=== PATIENT | female | born 1960 | race African-American/Black ===

== ENCOUNTER 2017-10-31 12:01 | Emergency (ER) | payer MEDICAID ==
[2017-10-31] MEDS ORDERED: TETRACAINE HCL 0.5% OPH SOLN 2 ML OS ONE ×2 (12:33→13:00)
--- NOTE | 2017-10-31 12:39 | ER Document Report ---
ED ENT - General Chief Complaint: Ear Pain Stated Complaint: EAR PAIN, EYE IRRITATION Time Seen by Provider: 10/31/17 12:18 Mode of Arrival: Ambulatory Information source: Patient Notes: 57-year-old female presents to ED for complaint of left ear pain since Tuesday. She states she came on a flight from [place] to [place] on Tuesday by Tuesday she had ear throat and nose pain and was starting to have some difficulty in swallowing. She states that yesterday she started having eye pain in her right eye. The eye is slightly red she states she is having drainage from the eye. Patient is alert and oriented respirations regular and unlabored speaking in full sentences. TRAVEL OUTSIDE OF THE [place] IN LAST 30 DAYS: No - HPI Patient complains to provider of: Ear problem - Left, Nose problem, Throat problem, Other Onset: Other - Findings Onset/Duration: Gradual, Worse Quality of pain: Achy, Dull, Other - Throbbing Severity: Moderate Pain Level: 4 Location of pain: Ears, Nose, Throat, Other - I Associated symptoms: Ear pain, Other - Red irritated painful eye with drainage Similar symptoms previously: Yes Recently seen / treated by doctor: No - Related Data Allergies/Adverse Reactions: No Known Allergies Allergy (Unverified 10/31/17 12:02) Past Medical History - General Information source: Patient - Social History Smoking Status: Current Every Day Smoker Cigarette use (# per day): Yes - 5-6 Chew tobacco use (# tins/day): No Smoking Education Provided: Yes - 4 minutes Frequency of alcohol use: None Drug Abuse: None Lives with: Alone Family History: Reviewed & Not Pertinent Patient has suicidal ideation: No Patient has homicidal ideation: No - Past Medical History Cardiac Medical History: Reports: Hx Hypercholesterolemia, Hx Hypertension Pulmonary Medical History: Reports: Hx Asthma EENT Medical History: Reports: None Neurological Medical History: Reports: None Endocrine Medical History: Reports: None Renal/ Medical History: Reports: None Malignancy Medical History: Reports: None GI Medical History: Reports: None Musculoskeletal Medical History: Reports Hx Musculoskeletal Deformity, Reports Hx Musculoskeletal Trauma Skin Medical History: Reports None Psychiatric Medical History: Reports: None Traumatic Medical History: Reports: None Infectious Medical History: Reports: None Past Surgical History: Reports: Hx Orthopedic Surgery - rotator cuff - Immunizations Immunizations up to date: Yes Hx Diphtheria, Pertussis, Tetanus Vaccination: Yes Review of Systems - Review of Systems Constitutional: No symptoms reported EENT: Eye pain, Ear pain, Nose pain, Nose congestion, Nose discharge, Sinus pressure, Throat pain Cardiovascular: No symptoms reported Respiratory: No symptoms reported Gastrointestinal: No symptoms reported Genitourinary: No symptoms reported Female Genitourinary: No symptoms reported Musculoskeletal: No symptoms reported Skin: No symptoms reported Hematologic/Lymphatic: No symptoms reported Neurological/Psychological: No symptoms reported -: Yes All other systems reviewed and negative Physical Exam - Vital signs Vitals: Temp Pulse Resp BP Pulse Ox 97.6 F 74 16 134/81 H 100 10/31/17 12:07 10/31/17 12:07 10/31/17 12:07 10/31/17 12:07 10/31/17 12:07 Interpretation: Normal - General General appearance: Appears well, Alert - HEENT Head: Normocephalic, Atraumatic Eyes: Normal Conjunctiva: Injected Cornea: No: Corneal abrasion, Corneal ulcer, Dendrite, Embedded foreign body, Flourescein stain uptake, Opacified, Superficial foreign body Eyelashes: Normal Pupils: PERRL Ears: Normal External canal: Normal Tympanic membrane: Normal Sinus: Normal Nasal: Swelling, Clear rhinorrhea Mouth/Lips: Normal Mucous membranes: Normal Pharynx: Post nasal drainage Neck: Normal - Respiratory Respiratory status: No respiratory distress Chest status: Nontender Breath sounds: Normal Chest palpation: Normal - Cardiovascular Rhythm: Regular Heart sounds: Normal auscultation Murmur: No - Abdominal Inspection: Normal Distension: No distension Bowel sounds: Normal Tenderness: Nontender Organomegaly: No organomegaly - Back Back: Normal, Nontender - Extremities General upper extremity: Normal inspection, Nontender, Normal color, Normal ROM , Normal temperature General lower extremity: Normal inspection, Nontender, Normal color, Normal ROM , Normal temperature, Normal weight bearing. No: Chioma's sign - Neurological Neuro grossly intact: Yes Cognition: Normal Orientation: AAOx4 Eddie Coma Scale Eye Opening: Spontaneous [place] Coma Scale Verbal: Oriented [place] Coma Scale Motor: Obeys Commands [place] Coma Scale Total: 15 Speech: Normal Motor strength normal: LUE, RUE, LLE, RLE Sensory: Normal - Psychological Associated symptoms: Normal affect, Normal mood - Skin Skin Temperature: Warm Skin Moisture: Dry Skin Color: Normal Course - Re-evaluation Re-evalutation: 10/31/17 13:17 Patient does have signs and symptoms of an upper respiratory infection. There is no signs or symptoms of any ear infection any redness in the drainage any swelling. She does have a red painful conjunctivae on the right side. I have checked with fluoroscopy stain and there is no corneal abrasion and corneal ulcers or any other abnormalities. Patient has been treated with Polytrim eyedrops and instructed to follow-up with an microstrategy developer as soon as she returns home. She was given the name and number of the ears nose and throat doctor in case her pain gets worse before she leaves and her left ear. Patient was also instructed to return to the ED for any complications. Patient will be discharged home. Patient verbalized understanding of instructions and agreement with treatment plan. - Vital Signs Vital signs: Temp Pulse Resp BP Pulse Ox 97.7 F 70 13 125/65 96 10/31/17 13:38 10/31/17 13:38 10/31/17 13:38 10/31/17 13:38 10/31/17 13:38 Discharge - Discharge Clinical Impression: Otalgia of left ear Conjunctivitis Qualifiers: Conjunctivitis type: unspecified Laterality: right Qualified Code(s): H10.9 - Unspecified conjunctivitis URI (upper respiratory infection) Qualifiers: URI type: unspecified URI Qualified Code(s): J06.9 - Acute upper respiratory infection, unspecified Condition: Stable Disposition: HOME, SELF-CARE Additional Instructions: UPPER RESPIRATORY ILLNESS: You have a viral infection of the respiratory passages -- a "cold." This common infection causes nasal congestion, drainage, and often sore throat and cough. It is highly contagious. The disease usually lasts about 10 to 14 days. There is no "cure" for the viral infection -- it must run its course. If there is a complication, such as bacterial infection in the nose, sinuses, middle ear, or bronchial tubes, antibiotics may be required. The antibiotics won't affect the virus. Drink plenty of fluids. A humidifier may help. An expectorant medication or decongestant may make you more comfortable. Use acetaminophen or ibuprofen for fever or aches. See the doctor if fever persists over two days, if there is any significant worsening of your symptoms, or if you simply fail to improve as expected. CONJUNCTIVITIS: You have an infection in your eye, commonly known as "pink eye." Conjunctivitis causes redness, mild discomfort, itching, and mattering on the eyelids. It is very contagious, so you must be careful to wash your hands after touching your face so you don't pass the infection on to others. Conjunctivitis is caused by both viruses and bacteria. It usually responds quickly to treatment with antibiotic drops. These should be placed in the eye as prescribed (usually every three to four hours while you're awake). If you wear contact lenses, don't put them in your eyes until the infection is cleared and you are no longer using the drops (unless your doctor advises you otherwise). Should you develop increasing eye pain, severe swelling, decreased vision, or fail to improve as expected, please return for re-examination. EYEDROP USE: Eyedrops are most easily applied by pulling down on the cheek just below the lower eyelid. The lower lid will pop out to form a pouch into which you can drop the medicine. A small brief sting is not unusual, especially if the eye is reddened and irritated already. Use the drops exactly as recommended. You should see the doctor at once if there is a decrease in vision, swelling of the eye, or an increase in discomfort. USE OF ACETAMINOPHEN (Tylenol): Acetaminophen may be taken for pain relief or fever control. It's much safer than aspirin, offering a wider range of "safe" dosages. It is safe during . Some brand names are Tylenol, Panadol, Datril, Anacin 3, Tempra, and Liquiprin. Acetaminophen can be repeated every four hours. The following are maximum recommended dosages: >89 pounds or adults 650 mg to 900 mg Acetaminophen can be repeated every four hours. Maximum dose not to exceed 4000 mg a day. SMOKING: If you smoke, you should stop smoking. The tar and chemicals in cigarette smoke are harmful. Smoking has been shown to cause: emphysema chronic bronchitis lung cancer mouth and throat cancer stomach and pancreas cancer premature aging defects In addition, smoking increases ear and lung infections in children of smokers. You have been given a syringe full of lidocaine. You could place a small amount of this in your ear canal every 2-4 hours for pain. This is just to help you with the discomfort. There is no infection there but it will numb the ear. It does not help you with your pain you do not need to use it it is just for comfort FOLLOW-UP CARE: If you have been referred to a physician for follow-up care, call the physician s office for an appointment as you were instructed or within the next two days. If you experience worsening or a significant change in your symptoms, notify the physician immediately or return to the Emergency Department at any time for re-evaluation. Prescriptions: Polymyxin B Sulf/Trimethoprim [Polytrim Eye Drops] 1 drop RT_EYE Q3HWA #1 bottle Forms: Elevated Blood Pressure, Smoking Cessation Education Referrals: NIMESH PARDO DO [ASSOCIATE] - Follow up as needed
[2017-10-31] MEDS ORDERED: POLYMYXIN B SULFATE/TMP OPH SOLN (10 ML/ER DISP) OD PRN (13:09)
[2017-10-31] MEDS ORDERED: LIDOCAINE 2% VISCOUS SOLN 20 ML UDCUP PO ONE (13:14)
[2017-10-31 13:40] VITALS: BP 125/65
== END 2017-10-31 13:38 | disposition home or self-care (01) ==
LOC: ER 12:01
DX: H10.9 Unspecified conjunctivitis (principal); J06.9 Acute upper respiratory infection, unspecified; H92.02 Otalgia, left ear; H57.11 Ocular pain, right eye; J34.89 Other specified disorders of nose and nasal sinuses; R07.0 Pain in throat; I10 Essential (primary) hypertension; R09.81 Nasal congestion; F17.210 Nicotine dependence, cigarettes, uncomplicated; Z71.6 Tobacco abuse counseling; R09.82 Postnasal drip
CPT/HCPCS: 99406; 99283; J3490 ×2